=== PATIENT | female | born 1990 ===

== ENCOUNTER 2021-03-26 14:51 | Emergency (ER) | payer OTHER ==
[~2021-03-26] VITALS: Ht 157.5 cm; Wt 88.5 kg
[2021-03-26] MEDS ORDERED: PEPCID AC20 MG PO (19:24)
[2021-03-26] MEDS ORDERED: CIPRO500 MG PO (19:24)
[2021-03-26] MEDS ORDERED: PROBIOTIC1 EAC4 PO (19:24)
== END 2021-03-26 20:32 | disposition home or self-care (01) ==
LOC: ER 14:51
DX: K52.89 Other specified noninfective gastroenteritis and colitis (principal); N39.0 Urinary tract infection, site not specified; Z20.828 Contact with and (suspected) exposure to other viral communicable diseases